=== PATIENT | female | born 1965 | race Caucasian/White ===

== ENCOUNTER → 2020-03-22 | Emergency (ER) | payer OTHER ==
[~2020-03-22] VITALS: Ht 160 cm; Wt 74.4 kg
[~2020-03-22] MED LIST: BENADRYL25 MG PO; GLIPIZIDE ER10 MG; GRALISE600 MG PO; JENTADUETO 2.51 EACH; PERCOCET 5-3251 EACH PO; ZOCOR20 MG
== END | disposition home or self-care (01) ==
LOC: ER 12:29
DX: B02.8 Zoster with other complications (principal)

== ENCOUNTER 2020-04-14 09:15 | Emergency (ER) | payer OTHER ==
[~2020-04-14] VITALS: Ht 160 cm; Wt 72.6 kg
[2020-04-14] MEDS ORDERED: AMITRIPTYLINE H25 MG PO (10:24)
[2020-04-14] MEDS ORDERED: PERCOCET 5-3251 EACH PO (10:24)
== END 2020-04-14 10:33 | disposition home or self-care (01) ==
LOC: ER 09:15
DX: B02.29 Other postherpetic nervous system involvement (principal)

== ENCOUNTER 2020-07-29 17:55 | Emergency (ER) | payer OTHER ==
[~2020-07-29] VITALS: Ht 160 cm; Wt 72.6 kg
[~2020-07-29 17:55] MED LIST changes: +AMITRIPTYLINE H25 MG PO
== END 2020-07-29 19:38 | disposition home or self-care (01) ==
LOC: ER 17:55
DX: M25.562 Pain in left knee (principal)

== ENCOUNTER 2021-07-02 13:18 | Emergency (ER) | payer OTHER ==
[~2021-07-02] VITALS: Ht 162.6 cm; Wt 74.4 kg
[2021-07-02] MEDS ORDERED: DOLOGESIC 500-1 EACH PO (16:17)
== END 2021-07-02 16:49 | disposition home or self-care (01) ==
LOC: ER 13:18
DX: M62.830 Muscle spasm of back (principal); M54.42 Lumbago with sciatica, left side

== ENCOUNTER 2022-12-20 12:58 | Outpatient (CLI) | payer OTHER ==
[~2022-12-20 12:58] MED LIST changes: +DOLOGESIC 500-1 EACH PO
== END 2022-12-20 13:00 | disposition home or self-care (01) ==
LOC: NUCLEAR 12:58
PROVIDERS: ATTEND General Practice
DX: M81.0 Age-related osteoporosis without current pathological fracture (principal)